=== PATIENT | male | born 1945 | race Caucasian/White ===

== ENCOUNTER 2022-09-02 09:12 | Emergency (ER) | payer MEDICARE, OTHER, SELFPAY ==
--- NOTE | ~2022-09-02 | XR_ITS ---
EXAMINATION: [id number]_[id number] DATE: 09/02/2022 09:52 INDICATION: Anterior to lateral right rib pain TECHNIQUE: A frontal inspiratory view of the chest and 3 views of the right ribs were obtained. COMPARISON: None FINDINGS: Emphysema with prominent increased lucency and architectural distortion in the mid and upper lung zon es and with bronchovascular crowding in the lower lung zones. Linear opacities at the lung bases, rig ht greater than left and favor atelectasis over pneumonia. Suture line in the left hilar region. Blun ting at the right costophrenic angle consistent with small right pleural effusion. No pneumothorax. L ikely nondisplaced anterior right fifth and sixth rib fractures. Additional minimally displaced poste rolateral left seventh and ninth rib fractures. Partially visualized abdominal aortic endoluminal sascha nt grafting. Mild mid thoracic levocurvature with suggestion of a few mild thoracic compression fract ures. IMPRESSION: 1. Age-indeterminate nondisplaced anterior right fifth and sixth rib fractures and minimally displace d posterolateral left seventh and ninth rib fractures. 2. Severe emphysema with bibasilar atelectasis/scarring versus less likely pneumonia. 3. Small right pleural effusion. No pneumothorax. 4. Suggestion of a few age-indeterminate mild thoracic compression fractures. Reviewed, dictated and finalized at location A. IMPRESSION: 1. Age-indeterminate nondisplaced anterior right fifth and sixth rib fractures and minimally displaced posterolateral left seventh and ninth rib fractures. 2. Severe emphysema with bibasilar atelectasis/scarring versus less likely pneu monia. 3. Small right pleural effusion. No pneumothorax. 4. Suggestion of a few age-indeterminate mild thoracic compression fractures.
[2022-09-02 09:22] VITALS: BP 151/86; PULSE 76; RESP 20; TEMP 35.7; O2SAT 94
--- NOTE | 2022-09-02 09:41 | ED.GENADULT ---
HPI - General Adult General Chief complaint: Chest Pain Stated complaint: Rib pain on right side Time Seen by Provider: 09/02/22 09:41 Source: patient Mode of arrival: ambulatory Limitations: no limitations History of Present Illness HPI narrative: 76 y/o male presented for c/o right lower rib pain for 4 days. States he struck the rib on a bin while he was reaching down into it. States he had to lift himself off of the ground to bend over into the bin, and the right lower rib 'got stuck' when he tried to get out. Wearing salon pas and taking tylenol for pain. Chronic O2 at 5L per [place], and hx COPD. Reports increased sob since the injury. Denies chest pain, hemoptysis. Current smoker 4PPD. Related Data Home Medications Medication Instructions Recorded Confirmed bupropion HCl 150 mg 24 hr tablet, 150 mg PO DAILY 09/02/22 09/02/22 extended release Allergies Allergy/AdvReac Type Severity Reaction Status Date / Time No Known Allergies Allergy Verified 09/02/22 09:55 Review of Systems Review of Systems: CONSTITUTIONAL: Denies body aches, fever, chills, or sweats. EYES: Denies visual changes, redness, or discharge. ENT: Denies rhinorrhea, congestion, sore throat, or otalgia. CARDIOVASCULAR: Denies chest pain, palpitations, or edema. RESPIRATORY: Denies cough or dyspnea. GASTROINTESTINAL: Denies abdominal pain, nausea, vomiting, or diarrhea. SKIN: Denies rash or wounds. MUSCULOSKELETAL: Reports right rib pain NEUROLOGIC: Denies headache, numbness, tingling, or weakness. All systems reviewed & are unremarkable except as noted in HPI and below PMFSH Comments At time of signature, I have reviewed and agree with nursing past medical, surgical, social and family history unless otherwise noted. Please see nursing chart for further information. There is no relevant family history pertinent to the presenting complaint Exam Narrative: GENERAL: Chronically ill appearing EYES: EOMI. No redness or drainage. Conjunctivae normal. ENT: Mucous membranes pink and moist. No rhinorrhea. CHEST: Diminished to auscultation. Labored at rest. 5L NC. HEART: Regular rate and rhythm. ABDOMEN: Soft, nontender, nondistended, normal active bowel sounds. MUSCULOSKELETAL: Right lower rib pain with palpation approx ribs 5-8, no bruising or apparent deformity. EXTREMITIES: Normal range of motion. No edema. SKIN: Warm, dry, no rash. Capillary refill normal. Course Course Emergency Course: Patient is aware of diagnosis, understands and agrees to treatment plan. Anticipatory guidance given. Patient agrees to follow-up as directed and is aware of reasons to seek care at the emergency department. Portions of this record may have been created with voice recognition software Level of Care: Express Care Visit Vital Signs Vital signs: Vital Signs Temperature 96.3 F L 09/02/22 09:22 Pulse Rate 76 09/02/22 09:22 Respiratory Rate 20 09/02/22 09:22 Blood Pressure 151/86 H 09/02/22 09:22 Pulse Oximetry 94 09/02/22 09:22 Oxygen Delivery Nasal Cannula 09/02/22 09:22 Oxygen Flow Rate 5 09/02/22 09:22 Temperature 96.3 F L 09/02/22 09:22 Pulse Rate 76 09/02/22 09:22 Respiratory Rate 20 09/02/22 09:22 Blood Pressure 151/86 H 09/02/22 09:22 Pulse Oximetry 94 09/02/22 09:22 Oxygen Delivery Nasal Cannula 09/02/22 09:22 Oxygen Flow Rate 5 09/02/22 09:22 Medical Decision Making MDM Narrative Medical decision making narrative: Result of the Xray reviewed with pt. He denies any thoracic pain or vertebral point tenderness on exam. Denies left posterolateral rib pain. Advised supportive measures and signs/symptoms to go to the ER. Pt is appropriate for outpt treatment and is advised to f/u with pcp regarding xray results. Differential Diagnosis Differential Diagnosis: rib fracture, rib contusion, costochondritis Vital Signs Vital Signs: Vital Signs Temperature 96.3 F L 09/02/22 09:22 Pulse Rate
== END 2022-09-02 10:32 | disposition home or self-care (01) ==
PROVIDERS: Emergency Provider Nurse Practitioner Family
DX: S22.43XA Multiple fractures of ribs, bilateral, initial encounter for closed fracture (principal); W22.8XXA Striking against or struck by other objects, initial encounter; F17.200 Nicotine dependence, unspecified, uncomplicated; J44.9 Chronic obstructive pulmonary disease, unspecified; Z99.81 Dependence on supplemental oxygen
CPT/HCPCS: 71101; 99213; G0463

== ENCOUNTER 2022-12-10 16:16 | Emergency (ER) | payer MEDICARE, OTHER, SELFPAY ==
[2022-12-10 16:20] VITALS: BP 161/121; PULSE 78; RESP 20; TEMP 36.7; O2SAT 98
--- NOTE | 2022-12-10 16:37 | ED.GENADULT ---
HPI - General Adult General Chief complaint: Upper Respiratory Infection Stated complaint: cough/trouble breathing Time Seen by Provider: 12/10/22 16:38 Source: patient, RN notes reviewed and old records reviewed Mode of arrival: ambulatory Limitations: no limitations History of Present Illness HPI narrative: 77-year-old presents to the [facility] with complaints of chest tightness, increased shortness of breath, increased oxygen need over the last 2 days. Patient reports that his was evaluated over the weekend and given a Z-Simon/ prednisone and states she is not any better. States he wants treatment as well Patient only talking 2-3 words in a sentence before having to catch his breath Patient has a significant history of lung cancer, COPD, emphysema. Reports that he had COVID a year ago Poor historian, unable to verbalize which medication he is on Onset (ago): day(s) (1) Radiation: non-radiation Related Data Home Medications Medication Instructions Recorded Confirmed bupropion HCl 150 mg 24 hr tablet, mg PO 12/10/22 extended release Allergies Allergy/AdvReac Type Severity Reaction Status Date / Time No Known Allergies Allergy Verified 09/02/22 09:55 Review of Systems Review of Systems: All systems reviewed & are unremarkable except as noted in HPI and below Constitutional: Constitutional: Reports no additional constitutional complaints Eyes: Eyes: Reports no additional eye complaints ENT: Reports system reviewed and no additional complaints, except as documented Cardiovascular: Cardiovascular: Reports as per HPI (Chest pressure), Denies chest pain and Denies dyspnea Respiratory: Respiratory: Reports as per HPI (Increased oxygen), Denies chest congestion, Reports cough and Reports dyspnea Gastrointestinal: Gastrointestinal: Reports no additional gastrointestinal complaints, Denies abdominal pain, Denies nausea and Denies vomiting Musculoskeletal: Musculoskeletal: Reports no additional musculoskeletal complaints Integumentary/Breasts: Skin/Breast: Reports system reviewed and no additional complaints, except as docu Neurologic: Reports system reviewed and no additional complaints, except as documented Psychiatric: Psychiatric: Reports no additional psychiatric complaints Allergic/Immunologic: Allergic/Immunologic: Reports no additional allergic/immunologic complaints PMFSH Past Medical History Medical History (Updated 12/10/22 @ 16:58 by Pham Smith APRN) COPD (chronic obstructive pulmonary disease) Emphysema lung Lung cancer Comments At the time of my signature, I reviewed and agree with the nursing past medical, surgical, social, and family history. There is no relevant family history pertinent to the patient complaint. Exam Const: General: cooperative, no acute distress, well developed, alert, acute distress mild, ill appearing acutely and chronically, uncomfortable, well nourished, thin and underweight Nutritional Appearance: well nourished Orientation/consciousness: patient oriented x3 Limitations: no limitations HENMT: Head: normal to inspection Ears: hearing grossly normal bilaterally and external ears normal Face/Nose/Sinus: Normal external nose present, Normal nares present, Normal nasal mucous membranes and turbinates present and normal facial exam Face and sinus: normal facial exam Mouth: Yes Normal oral and palatal mucosa present, Yes lip normal and Yes moist mucous membranes Throat: posterior oropharynx normal and uvula midline Other: cyanosis of the lips and nose Eyes: General: appearance normal, both eyes and all related structures Alignment and Position: alignment normal Periorbital: periorbital findings normal Conjunctivae: conjunctivae normal Pupils: Equal, round and reactive pupils present EOM: EOMs intact bilaterally Neck: Neck: normal visual inspection, full ROM, no lymphadenopathy and no meningeal signs Chest: Chest palpation & inspection: normal inspec
--- NOTE | 2022-12-10 16:45 | ECG_ITS ---
Measurements Intervals [place] Rate: 76 P: 77 OK: 129 QRS: 40 QRSD: 101 T: 50 QT: 361 QTc: 407 Interpretive Statements SINUS RHYTHM VOLTAGE CRITERIA FOR LVH BORDERLINE ECG NO PREVIOUS ECG AVAILABLE FOR COMPARISON Electronically Signed On 12-11-2022 7:55:01 LOCAL GOVERNMENT LEGISLATOR by Matthew Rdz D.O.
--- NOTE | 2022-12-10 17:04 | PC.NURSE ---
Making arrangements for transfer to [facility]. 96% on 4 liters. BP rechecked 167/69. EMS enroute. EKG done.
== END 2022-12-10 17:25 | disposition short-term general hospital (02) ==
PROVIDERS: Emergency Provider Nurse Practitioner
DX: R06.02 Shortness of breath (principal); R07.89 Other chest pain; J44.9 Chronic obstructive pulmonary disease, unspecified; Z85.118 Personal history of other malignant neoplasm of bronchus and lung; Z86.16 Personal history of COVID-19
CPT/HCPCS: 93005; 99215; G0463

== ENCOUNTER 2024-08-20 16:39 | Emergency (ER) | payer MEDICARE, OTHER, SELFPAY ==
--- NOTE | ~2024-08-20 | XR_ITS ---
EXAMINATION: [id number] DATE: 08/20/2024 17:28 INDICATION: Left frontal rib pain. TECHNIQUE: A frontal view of the chest and 2 views on 4 radiographs of the left ribs were obtained. COMPARISON: Chest radiograph 09/02/2022 FINDINGS: The lungs are hyperexpanded with lucencies, consistent with emphysema. There is atelectasis versus scarring in the mid and lower lung zones. No pleural effusion or pneumothorax. The heart size is normal. There is a stent graft in abdominal aorta. An implant overlies the heart. There are are o ld healed left rib fractures. IMPRESSION: 1. No acute rib fracture. 2. Severe emphysema. 3. Atelectasis versus scarring in the mid and lower lung zones. Reviewed, dictated and finalized at location A.
[2024-08-20 16:50] VITALS: BP 121/71; PULSE 84; RESP 20; TEMP 36.6; O2SAT 99
--- NOTE | 2024-08-20 16:51 | ED.GENADULT ---
HPI - General Adult General Stated complaint: Left Side Rib Pain Source: patient Mode of arrival: ambulatory Limitations: no limitations History of Present Illness HPI narrative: 78-year-old male with hx COPD presented for complaint of left anterior rib pain after injury this morning. 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 Endorses pain is worse with any coughing or deep breaths. Rates pain 06/26. has not taken anything for pain Related Data Home Medications Medication Instructions Recorded Confirmed atorvastatin 80 mg tablet mg 08/20/24 budesonide 160 mcg-glycopyr 9 inh inhalation 08/20/24 mcg-formot 4.8 mcg/actuation HFA inhaler (Breztri [employer]) bupropion HCl 150 mg 24 hr tablet, mg PO 08/20/24 extended release furosemide 20 mg tablet mg 08/20/24 ipratropium 0.5 mg-albuterol 3 mg ml inhalation 08/20/24 (2.5 mg base)/3 mL nebulization soln ticagrelor 90 mg tablet (Brilinta) mg 08/20/24 Allergies Allergy/AdvReac Type Severity Reaction Status Date / Time No Known Allergies Allergy Verified 08/20/24 16:58 Review of Systems Review of Systems: CONSTITUTIONAL: Denies body aches, fever, chills, or sweats. ENT: Denies rhinorrhea, congestion, sore throat, or otalgia. CARDIOVASCULAR: Denies chest pain, palpitations, or edema. RESPIRATORY: Denies cough or dyspnea. SKIN: Denies wounds. MUSCULOSKELETAL: reports left rib pain NEUROLOGIC: Denies headache, numbness, tingling, or weakness. All systems reviewed & are unremarkable except as noted in HPI and below PMFSH Past Medical History Medical History COPD (chronic obstructive pulmonary disease) Emphysema lung Lung cancer Comments At time of signature, I have reviewed and agree with nursing past medical, surgical, social and family history unless otherwise noted. Please see nursing chart for further information. There is no relevant family history pertinent to the presenting complaint Exam Narrative: GENERAL: chronically ill appearing, in no acute distress. HEAD: Normocephalic, atraumatic. ENT: Mucous membranes pink and moist. CHEST: Left anterior rib tender with palpation area of 4-5. No deformity. No respiratory distress. Diminished to auscultation. O2 tank with pt. HEART: Regular rate and rhythm. No murmur appreciated. Normal peripheral pulses. ABDOMEN: Soft, nontender, nondistended, normal active bowel sounds. SKIN: Warm, dry, no rash. Capillary refill normal. Poor skin turgor. NEURO: Alert and oriented x3. Gait steady. PSYCH: Normal affect. Course Course Emergency Course: Patient is aware of diagnosis, understands and agrees to treatment plan. Anticipatory guidance given. Patient agrees to follow-up as directed and is aware of reasons to seek care at the emergency department. Portions of this record may have been created with voice recognition software Level of Care: Express Care Visit Medical Decision Making MDM Narrative Medical decision making narrative: Discussed physical exam findings and xray. Advised supportive measures and signs/symptoms to go to the ER. Pt is appropriate for outpt treatment and f/u. Differential Diagnosis Differential Diagnosis: rib fracture, contusion, dislocation Vital Signs Vital Signs: reviewed Imaging Data Radiologist's impression: Patient: Pranav Hamilton : 1945 MR#: [id number] Age: 78 Acct:[id number] Loc: [facility] ADM Date: 08/20/24Attending Dr: Ordering Physician: Lola Barton APRN Date of Service: 08/20/24 Procedure(s): XR ribs LT w PA CXR Accession Number(s): [id number] cc: Lorena, Karolina BULL; Lola Barton APRN~ EXAMINATION: [id number] DATE: 08/20/2024 17:28 INDICATION: Left frontal rib pain. TECHNIQUE: A frontal view of the chest and 2 views on 4 radiogr
[2024-08-20 17:00] VITALS: BP 121/71; PULSE 84; RESP 20; TEMP 36.6; O2SAT 99
== END 2024-08-20 17:50 | disposition home or self-care (01) ==
PROVIDERS: Emergency Provider Nurse Practitioner Family; PCP Family Medicine
DX: R07.89 Other chest pain (principal); J44.9 Chronic obstructive pulmonary disease, unspecified; Z85.118 Personal history of other malignant neoplasm of bronchus and lung
CPT/HCPCS: 71101; 99213; G0463

== ENCOUNTER 2024-10-01 15:22 | Emergency (ER) | payer MEDICARE, OTHER, SELFPAY ==
--- NOTE | ~2024-10-01 | XR_ITS ---
EXAMINATION: XR chest 2V DATE: 10/01/2024 15:56 INDICATION: Cough. TECHNIQUE: Frontal and lateral views of the chest were obtained. COMPARISON: Chest single view 08/20/2024 FINDINGS: There are lucencies in the lungs, consistent with emphysema. There are airspace opacities i n the lower lung zones. No pleural effusion or pneumothorax. The heart size is normal. There is an im plant in the heart. There is a stent graft in abdominal aorta. There are chronic compression fracture s in thoracic spine. IMPRESSION: 1. Airspace opacities in the lower lung zones, consistent with atelectasis versus pneumonia. 2. Emphysema. Reviewed, dictated and finalized at location A. IDE SALES CONSULTANT IMPRESSION: 1. Airspace opacities in the lower lung zones, consistent with atelectasis vers us pneumonia. 2. Emphysema.
[2024-10-01 15:33] VITALS: BP 126/76; PULSE 81; RESP 16; TEMP 36.2; O2SAT 97
--- NOTE | 2024-10-01 15:59 | ED.URI ---
HPI - URI/Sore Throat General Chief Complaint: Upper Respiratory Infection Stated Complaint: Sore Throat/Cough Time Seen by Provider: 10/01/24 15:59 Source: patient, RN notes reviewed and old records reviewed Mode of arrival: ambulatory Limitations: no limitations History of Present Illness HPI Narrative: 79-year-old male presents to the [facility] with complaints of cough. Has a history of emphysema, lung cancer. Currently on oxygen. Symptoms x1 week Patient is not wanting to be transfer to the ER at this time. Currently on 4 L of oxygen. Patient is wanting to try day take antibiotics, states that his daughter's as this week. Related Data Home Medications Medication Instructions Recorded Confirmed atorvastatin 80 mg tablet 80 mg PO DAILY 08/20/24 10/01/24 budesonide 160 mcg-glycopyr 9 inh inhalation 08/20/24 mcg-formot 4.8 mcg/actuation HFA inhaler (Breztri Aerosphere) bupropion HCl 150 mg 24 hr tablet, 150 mg PO DAILY 08/20/24 10/01/24 extended release ipratropium 0.5 mg-albuterol 3 mg ml inhalation 08/20/24 (2.5 mg base)/3 mL nebulization soln ticagrelor 90 mg tablet (Brilinta) mg 08/20/24 ezetimibe 10 mg tablet mg 10/01/24 potassium chloride 20 mEq meq PO 10/01/24 tablet,extended release(part/cryst) Allergies Allergy/AdvReac Type Severity Reaction Status Date / Time No Known Allergies Allergy Verified 08/20/24 16:58 Review of Systems Review of Systems: All systems reviewed & are unremarkable except as noted in HPI and below Constitutional: Constitutional: Reports no additional constitutional complaints ENT: Reports system reviewed and no additional complaints, except as documented Cardiovascular: Cardiovascular: Reports no additional cardiovascular complaints, Denies chest pain and Denies dyspnea Respiratory: Respiratory: Reports as per HPI, Reports chest congestion, Reports cough and Reports dyspnea Gastrointestinal: Gastrointestinal: Reports no additional gastrointestinal complaints, Denies abdominal pain, Denies nausea and Denies vomiting Musculoskeletal: Musculoskeletal: Reports no additional musculoskeletal complaints Integumentary/Breasts: Skin/Breast: Reports system reviewed and no additional complaints, except as [facility]u [facility] Past Medical History Medical History COPD (chronic obstructive pulmonary disease) Emphysema lung Lung cancer Comments At the time of my signature, I reviewed and agree with the nursing past medical, surgical, social, and family history. There is no relevant family history pertinent to the patient complaint. Exam Const: General: cooperative, no acute distress, well developed, alert, ill appearing chronically, uncomfortable and well nourished Nutritional Appearance: well nourished Orientation/consciousness: patient oriented x3 Limitations: no limitations HENMT: Head: normal to inspection Ears: hearing grossly normal bilaterally, external ears normal, TM's normal bilaterally, EAC's normal, mastoids normal and no periauricular adenopathy Face/Nose/Sinus: Normal external nose present, normal facial exam and face symmetric Face and sinus: normal facial exam and face symmetric Throat: uvula midline, posterior oropharynx abnormal erythema; no cobblstoning and no edema and no uvular edema Eyes: General: appearance normal, both eyes and all related structures Alignment and Position: alignment normal Periorbital: periorbital findings normal Neck: Neck: normal visual inspection, full ROM, no lymphadenopathy and no meningeal signs Chest: Chest palpation & inspection: normal inspection of the chest Resp: Effort & Inspection: normal respiratory effort and able to speak in complete sentences Auscultation: no crackles, no rales, no rhonchi, no wheezes and diminished lung sounds bilateral throughout Cardio: Rate: regular rate Skin: General skin exam: normal color and no rashes or lesions noted Lesions: no lesions Rashes: no rashes Wounds: no wounds Neuro: General: patient oriented x3, gait normal, tone normal, moves all extremities and no meningeal signs Cognition (Neuro): normal cognition Speech: normal speech Gait exam (Neuro): Normal gait present Extrem: General: normal to inspection, full ROM, capillary refill normal and normal gait Psych: Appearance: grossly normal and well kempt Mental Status: mental status grossly normal Speech and movement: Normal speech and movement present and Clear speech present Affect: normal affect Attitude: cooperative Course Course Level of Care: Express Care Visit Vital Signs Vital signs: Vital Signs Temperature 97.1 F L 10/01/24 15:33 Pulse Rate 81 10/01/24 15:33 Respiratory Rate 16 10/01/24 15:33 Blood Pressure 126/76 10/01/24 15:33 Pulse Oximetry 97 10/01/24 15:33 Oxygen Delivery Nasal Cannula 10/01/24 15:33 Oxygen Flow Rate 4 10/01/24 15:33 Temperature 97.1 F L 10/01/24 15:33 Pulse Rate 81 10/01/24 15:33 Respiratory Rate 16 10/01/24 15:33 Blood Pressure 126/76 10/01/24 15:33 Pulse Oximetry 97 10/01/24 15:33 Oxygen Delivery Nasal Cannula 10/01/24 15:33 Oxygen Flow Rate 4 10/01/24 15:40 Reviewed MDM - URI/Sore Throat MDM Narrative Medical decision making narrative: Patient sitting in exam room. Nontoxic, vitals stable patient in no acute distress appears uncomfortable. X-ray shows atelectasis possible pneumonia. Due to patient's health history will prescribe any antibiotic. Discussed signs and symptoms that he must go to the emergency room for further evaluation which she verbalized understanding. Discharge instructions reviewed with patient, as well as provided in writing per nursing staff. The instructions also include specific and strict return/GO TO THE ER as well as f/u information. All questions have been answered, and the patient deny any further questions with discharge and discharge plan. Some parts of this dictation were generated by voice recognition software and may contain typographical and/or grammatical inaccuracies. Differential Diagnosis Differential diagnosis: Likely upper respiratory infection, sinusitis, viral infection, bronchitis, influenza and pharyngitis Imaging Data Radiologist's impression: EXAMINATION: XR chest 2V DATE: 10/01/2024 15:56 INDICATION: Cough. TECHNIQUE: Frontal and lateral views of the chest were obtained. COMPARISON: Chest single view 08/20/2024 FINDINGS: There are lucencies in the lungs, consistent with emphysema. There are airspace opacities in the lower lung zones. No pleural effusion or pneumothorax. The heart size is normal. There is an implant in the heart. There is a stent graft in abdominal aorta. There are chronic compression fractures in thoracic spine. IMPRESSION: 1. Airspace opacities in the lower lung zones, consistent with atelectasis versus pneumonia. 2. Emphysema. Critical Care Time Critical Care Time Critical Care Time: No Discharge Plan Discharge Clinical Impression: Emphysema of lung, Atelectasis, Pneumonia Patient Disposition: Home, Self-Care Condition: Stable Instructions: Antibiotic Form, Pneumonia (ED), Atelectasis (ED) Additional Instructions: Use your nebulizer treatment every 4-5 hours while awake. Be sure to take very deep breaths to help re-expand your lungs especially when doing the nebulizer treatments. Take antibiotics as prescribed If for some reason you start having trouble breathing, chest pain, increased oxygen need please go directly to the emergency room by calling 911 Patient Language: Somali Prescriptions: New azithromycin 500 mg tablet 500 mg PO DAILY 5 Days Qty: 5 0RF No Action atorvastatin 80 mg tablet 80 mg PO DAILY ipratropium-albuterol 0.5 mg-3 mg(2.5 mg base)/3 mL solution for nebulization INHALATION bupropion HCl 150 mg tablet extended release 24 hr 150 mg PO DAILY Brilinta 90 mg tablet Breztri Aerosphere 160-9-4.8 mcg/actuation HFA aerosol inhaler INHALATION potassium chloride 20 mEq tablet,ER particles/crystals PO ezetimibe 10 mg tablet Follow-up/Referrals: Lorena,MD Karolina [Primary Care Provider] - 3 Days (express care follow up ) Time of Disposition: 16:17
== END 2024-10-01 16:21 | disposition home or self-care (01) ==
PROVIDERS: Emergency Provider Nurse Practitioner; PCP Family Medicine
DX: J43.9 Emphysema, unspecified (principal); J98.11 Atelectasis; J18.9 Pneumonia, unspecified organism; J44.9 Chronic obstructive pulmonary disease, unspecified; Z99.81 Dependence on supplemental oxygen; Z85.118 Personal history of other malignant neoplasm of bronchus and lung
CPT/HCPCS: 71046; 99213; G0463